=== PATIENT | male | born 1985 | race African-American/Black ===

== ENCOUNTER 2021-06-29 08:26 | Emergency (ER) | payer MEDICAID ==
[~2021-06-29] VITALS: Ht 177.8 cm; Wt 72.6 kg
[2021-06-29 09:48] VITALS: BP 153/75
== END 2021-06-29 10:05 | disposition home or self-care (01) ==
LOC: ER 08:26
DX: U07.1 COVID-19 (principal); F17.210 Nicotine dependence, cigarettes, uncomplicated; F12.10 Cannabis abuse, uncomplicated
CPT/HCPCS: 71045

== ENCOUNTER 2021-08-02 11:13 | Emergency (ER) | payer MEDICAID, OTHER ==
[~2021-08-02] VITALS: Ht 177.8 cm; Wt 72.6 kg
[2021-08-02 12:26] VITALS: BP 125/86
== END 2021-08-02 17:44 | disposition home or self-care (01) ==
LOC: ER 11:13
DX: S82.142A Displaced bicondylar fracture of left tibia, initial encounter for closed fracture (principal); S90.32XA Contusion of left foot, initial encounter; F17.210 Nicotine dependence, cigarettes, uncomplicated; W22.8XXA Striking against or struck by other objects, initial encounter; Y93.89 Activity, other specified; Y92.89 Other specified places as the place of occurrence of the external cause; Y99.0 Civilian activity done for income or pay
CPT/HCPCS: 29505; 73700

== ENCOUNTER 2022-04-10 11:53 | Emergency (ER) | payer MEDICAID, OTHER ==
[2022-04-10] MEDS ORDERED: cefTRIAXone SOD 1,000 MG VL IM ONE (14:45)
[2022-04-10] MEDS ORDERED: KETOROLAC TROMETH 60MG/2ML VIAL IM ONE (14:45)
[2022-04-10 15:18] LABS: Basophils # (auto) 0.1 10 ^3/uL (0-0.2); Basophils % (auto) 0.6 % (0.0-2.0); Eosinophils # (auto) 0 10 ^3/uL (0-0.8); Eosinophils % (auto) 0.2 % (0.0-7.0); Hematocrit 48.9 % (41.0-53.0); Hemoglobin 15.8 g/dL (13.5-17.5); Lymphocytes # (auto) 1.7 10 ^3/uL (0.4-5.4); Lymphocytes % (auto) 9.2 % (10.0-50.0); Mean Corpuscular Hemoglobin 28.3 pg (28.0-32.0); Mean Corpuscular Hgb Conc. 32.4 g/dL (32.0-36.0); Mean Corpuscular Volume 87.5 fL (80.0-100.0); Monocytes # (auto) 1.8 10 ^3/uL (0-1.3); Monocytes % (auto) 10.1 % (0.0-12.0); Neutrophils # (auto) 14.4 10 ^3/uL (1.6-8.6); Neutrophils % (auto) 79.9 % (37.0-80.0); Nucleated Red Blood Cells % 0.1 %; Red Blood Cells 5.59 10^6/uL (4.5-5.90); Red Cell Distribution Width 12.6 % (11.8-14.3)
[2022-04-10 15:31] LABS: Albumin 3.6 g/dL (3.4-5.0); Calcium 9.6 mg/dL (8.5-10.1); Potassium 3.7 mmol/L (3.5-5.1)
[2022-04-10 15:34] LABS: BUN/Creatinine Ratio 9.3; Bilirubin, Total 0.7 mg/dL (0.2-1.0); Total Protein 9.3 g/dL (6.4-8.2)
[2022-04-10] MEDS ORDERED: LIDOCAINE 1% HCL (LOCAL ANESTH.) INJ 20ML MDV ID ONE (17:30)
[2022-04-10] MEDS ORDERED: AMOX-277 PO (18:02)
[2022-04-10] MEDS ORDERED: IBUP800T27 PO (18:02)
[2022-04-10 18:17] VITALS: BP 135/90
== END 2022-04-10 18:25 | disposition home or self-care (01) ==
LOC: ER 11:53
DX: K61.0 Anal abscess (principal); L02.31 Cutaneous abscess of buttock
CPT/HCPCS: 10060; 36415; 80053; 85025; 93926; 96372; 99284; J0696; J1885; J2001

== ENCOUNTER 2022-04-12 08:44 | Emergency (ER) | payer MEDICAID ==
[~2022-04-12] VITALS: Ht 177.8 cm; Wt 68.2 kg
[~2022-04-12 08:44] MED LIST: AMOX-277 PO; IBUP800T27 PO
[2022-04-12 08:55] VITALS: BP 139/92
== END 2022-04-12 09:06 | disposition home or self-care (01) ==
LOC: ER 08:44
DX: L02.31 Cutaneous abscess of buttock (principal); I10 Essential (primary) hypertension; F17.210 Nicotine dependence, cigarettes, uncomplicated; Z79.1 Long term (current) use of non-steroidal anti-inflammatories (NSAID); Z79.2 Long term (current) use of antibiotics

== ENCOUNTER 2022-06-07 16:00 | Emergency (ER) | payer MEDICAID ==
[~2022-06-07] VITALS: Ht 177.8 cm; Wt 69.2 kg
[2022-06-07] MEDS ORDERED: NEOM0.1S10 RIGHTEYE (18:29)
[2022-06-07] MEDS ORDERED: OLME40TA26 PO (18:29)
[2022-06-07 19:08] VITALS: BP 158/85
== END 2022-06-07 19:10 | disposition home or self-care (01) ==
LOC: ER 16:00
DX: I10 Essential (primary) hypertension (principal); H10.33 Unspecified acute conjunctivitis, bilateral; F17.210 Nicotine dependence, cigarettes, uncomplicated; F12.10 Cannabis abuse, uncomplicated
CPT/HCPCS: 71046; 93005